=== PATIENT | male | born 1975 | race Caucasian/White ===

== ENCOUNTER 2017-05-08 22:08 | Emergency (ER) | payer OTHER ==
[~2017-05-08] VITALS: Ht 177.8 cm; Wt 90.7 kg
[2017-05-08 22:11] VITALS: TEMP 36.5; Ht 177.8 cm; Wt 90.7 kg
[2017-05-08] MEDS ORDERED: RANITIDINE HCL 50 MG/100 ML D5W IV STA (22:31)
[2017-05-08] MEDS ORDERED: SODIUM CHLORIDE 0.9% 1000ML 1,000 ML IV STA (22:31)
[2017-05-08] MEDS ORDERED: GI COCKTAIL PO STA (22:31)
[2017-05-08] MEDS ORDERED: SUCR1TAB PO (22:34)
[2017-05-08] MEDS ORDERED: ALUMINUM/MAGNESIUM SUSP 30 ML UDC ONE (22:54)
[2017-05-08] MEDS ORDERED: LIDOCAINE HCL 2% VISC SOLN 20 ML UDC ONE (22:54)
[2017-05-08 23:12] LABS: ALT/SGPT 20 U/L (12-78); BLOOD UREA NITROGEN 9 mg/dl (7-18); BUN/CREATININE RATIO 7.3 (10-20); CALCIUM 8.5 mg/dl (8.5-10.1); CARBON DIOXIDE 30 mmol/L (21-32); CHLORIDE 103 mmol/L (98-107); GLUCOSE 116 mg/dl (70-99); POTASSIUM 3.2 mmol/L (3.5-5.1); SODIUM 140 mmol/L (136-145)
[2017-05-08 23:17] LABS: ALKALINE PHOSPHATASE 68 U/L (45-117); AST/SGOT 11 U/L (15-37)
[2017-05-08 23:18] LABS: BASO % 0.5 %; BASO ABS # 0.03 K/uL (0-0.2); COMPLETE YES; HEMATOCRIT 44.1 % (42-52); IG% 0.2 %; LYMPH ABS # 2.22 K/uL (1.2-3.4); MEAN CELL VOLUME 89.5 fL (80-100); MEAN CORPUSCULAR HGB CONC 34.7 g/dl (32-36); MEAN PLATELET VOLUME 10.3 fL (7.4-10.4); MONO % 7.1 %; NEUT % 56.2 %; PLATELET COUNT 211 K/uL (130-400); PLT ESTIMATE NORMAL; RED BLOOD COUNT 4.93 M/uL (4.7-6.1); WHITE BLOOD COUNT 6.52 K/uL (4.8-10.8)
[2017-05-09] MEDS ORDERED: OMEP40CA41 PO (01:08)
--- NOTE | 2017-05-09 01:08 | EMERGENCY ROOM VISIT NOTE ---
History First contact with patient: 22:15 Chief Complaint: ABDOMINAL PAIN Stated Complaint: SEVERE ABD PAIN Nursing Triage Summary: Pt reports abdominal pain that started over a week ago. Pt reports nausea and vomiting. History of Present Illness The patient is a 41 year old male who presents to the Emergency Room with complaints of upper abdominal pain which started 8 days ago. The patient states he has a history of upper abdominal pain and has previously been seen his primary care provider regarding this. He states he had a CT scan and was scheduled for an EGD, but this was canceled. Symptoms have been intermittent over the past several months, but have worsened over the past 8 days. The patient has nausea and dry heaves. Symptoms worsen with eating. He states he has been taking Pepto-Bismol for symptoms. He does not take anything daily. Rates his discomfort an 8/10. Denies any changes in bowel movements or urinary symptoms. He denies any fevers. The patient states he has occasional chest pain. He denies shortness of breath. Review of Systems A complete 10 point review of systems was reviewed with the patient with pertinent positives and negatives as per history of present illness. All else were negative. Social History Smoking Status: Current Every Day Smoker Current/Historical Medications Scheduled Omeprazole (Prilosec), 40 MG PO DAILY Sucralfate (Sucralfate), 1 GM PO QID Allergies Coded Allergies: No Known Allergies (Unverified , 05/08/17) Physical Exam Vital Signs Date Time Temp Pulse Resp B/P (MAP) Pulse Ox O2 Delivery O2 Flow Rate FiO2 05/09/17 01:13 82 18 159/87 98 05/09/17 00:15 54 18 157/81 97 Room Air 05/08/17 22:11 36.5 66 16 129/79 98 Room Air Physical Exam VITALS: Vitals are noted on the nurse's note and reviewed by myself. Vital signs stable. GENERAL: This is a 41-year-old male, in no acute distress, nondiaphoretic, well- developed well-nourished. SKIN: Capillary reflex less than 2 seconds. HEENT: Normocephalic. PERRLA. EOMI. Mucous membranes moist. Neck is supple without nuchal rigidity. HEART: Regular rate and rhythm without murmurs gallops or rubs. LUNGS: Clear to auscultation bilaterally without wheezes, rales or rhonchi. ABDOMEN: Positive bowel sounds x 4. Soft, nondistended. Mild tenderness to palpation of the epigastric region. No guarding or rebound tenderness. NEURO: Patient was alert and oriented to person place and time. Medical Decision & Procedures ER Provider Diagnostic Interpretation: CHEST/ABDOMEN X-RAY: No free air. No bowel obstruction. No cardiopulmonary abnormality. Laboratory Results 05/08/17 22:40 Red Blood Count 4.93, Mean Corpuscular Volume 89.5, Mean Corpuscular Hemoglobin 31.0, Mean Corpuscular Hemoglobin Concent 34.7, Mean Platelet Volume 10.3, Neutrophils (%) (Auto) 56.2, Lymphocytes (%) (Auto) 34.0, Monocytes (%) (Auto) 7.1, Eosinophils (%) (Auto) 2.0, Basophils (%) (Auto) 0.5, Neutrophils # (Auto) 3.67, Lymphocytes # (Auto) 2.22, Monocytes # (Auto) 0.46, Eosinophils # (Auto) 0.13, Basophils # (Auto) 0.03 05/08/17 22:40 Test 05/08/17 22:40 White Blood Count 6.52 K/uL (4.8-10.8) Red Blood Count 4.93 M/uL (4.7-6.1) Hemoglobin 15.3 g/dL (14.0-18.0) Hematocrit 44.1 % (42-52) Mean Corpuscular Volume 89.5 fL (80-100) Mean Corpuscular Hemoglobin 31.0 pg (25-34) Mean Corpuscular Hemoglobin Concent 34.7 g/dl (32-36) Platelet Count 211 K/uL (130-400) Mean Platelet Volume 10.3 fL (7.4-10.4) Neutrophils (%) (Auto) 56.2 % Lymphocytes (%) (Auto) 34.0 % Monocytes (%) (Auto) 7.1 % Eosinophils (%) (Auto) 2.0 % Basophils (%) (Auto) 0.5 % Neutrophils # (Auto) 3.67 K/uL (1.4-6.5) Lymphocytes # (Auto) 2.22 K/uL (1.2-3.4) Monocytes # (Auto) 0.46 K/uL (0.11-0.59) Eosinophils # (Auto) 0.13 K/uL (0-0.5) Basophils # (Auto) 0.03 K/uL (0-0.2) RDW Standard Deviation 41.6 fL (36.4-46.3) RDW Coefficient of Variation 12.8 % (11.5-14.5) Immature Granulocyte % (Auto) 0.2 % Immature Granulocyte # (Auto) 0.01 K/uL (0.00-0.02) Platelet Estimate NORMAL Red Blood Cell Morphology Unremarkable Anion Gap 7.0 mmol/L (3-11) Est Creatinine Clear Calc Drug Dose 89.9 ml/min Estimated GFR () 85.3 Estimated GFR (Non- 73.6 BUN/Creatinine Ratio 7.3 (10-20) Calcium Level 8.5 mg/dl (8.5-10.1) Total Bilirubin 0.5 mg/dl (0.2-1) Direct Bilirubin < 0.1 mg/dl (0-0.2) Aspartate Amino Transf (AST/SGOT) 11 U/L (15-37) Alanine Aminotransferase (ALT/SGPT) 20 U/L (12-78) Alkaline Phosphatase 68 U/L (45-117) Troponin I < 0.015 ng/ml (0-0.045) Total Protein 5.9 gm/dl (6.4-8.2) Albumin 3.2 gm/dl (3.4-5.0) Lipase 137 U/L (73-393) Medications Administered Medications (Trade) Dose Ordered Sig/Naif Route Start Time Stop Time Status Last Admin Dose Admin Miscellaneous Medication (Gi Cocktail) 24 ml NOW STAT PO 05/08/17 22:31 05/08/17 22:33 DC 05/08/17 23:31 24 ML Sodium Chloride 1,000 ml @ 999 mls/hr Q1H1M STAT IV 05/08/17 22:31 05/08/17 23:31 DC 05/08/17 23:30 999 MLS/HR Ranitidine HCl (zANTac IV) 50 mg NOW STAT IV 05/08/17 22:31 05/08/17 22:33 DC 05/08/17 23:30 50 MG ECG Rate (beats per minute): 52 Rhythm: sinus bradycardia Findings: no acute ischemic change, no ectopy ED Course The patient was evaluated as above. Labs were drawn and IV access was obtained. Patient was medicated with IV Zantac and a GI cocktail. Patient was reevaluated and findings were discussed. Discharge instructions were reviewed with the patient. The patient verbalized understanding of my assessment and treatment plan and was discharged home in good condition. Medical Decision Differential diagnosis includes gastritis, peptic ulcer disease, biliary colic, pneumonia, bowel obstruction, colitis, gastroenteritis, among others. The patient is a 41-year-old male who presents today complaining of upper abdominal pain which has been intermittent over the past several months. Labs revealed no leukocytosis, anemia or concerning electrolyte abnormalities. Lipase was not elevated. Urinalysis was not suggestive of infection. EKG was interpreted by myself and shows a normal sinus rhythm without ischemic changes. Symptoms are most consistent with peptic ulcer disease or gastritis. He was instructed to start a PPI at home. He will follow-up with his primary care provider and will need EGD as an outpatient. He was instructed to return here for any worsening or new/concerning symptoms. The patient's case was reviewed with Dr. Lozano, ED attending physician, who agreed with my assessment and treatment plan. Based on the patient's presentation and work up, I feel the patient is stable for outpatient treatment. The patient was educated to return to the emergency department for any worsening of their current condition or new/concerning symptoms. He will follow up with his PCP. Medication reconciliation: I attest that I have personally reviewed the patient 's current medication list. Blood Pressure Screening: Patient was found to have a slightly elevated blood pressure due to circumstances. I do not believe that the patient requires hypertension monitoring. Impression Primary Impression: Epigastric abdominal pain Departure Information Dispostion Home / Self-Care Condition GOOD Prescriptions Omeprazole (PRILOSEC) 40 Mg Cap 40 MG PO DAILY for 14 Days, #14 CAP Prov: Lydia Walker ., G[place] 05/09/17 Referrals Rhona Ceron M.D. (PCP) Patient Instructions My [facility] Additional Instructions You have been treated in the Emergency Department your Abdominal Pain. Laboratory results and imaging studies have ruled out any emergent causes for your abdominal pain which would warrant admission or surgery. Omeprazole as prescribed. For pain control, you can use the following [id number] medicines (if >12 yo): - Regular strength (325mg/tab) Tylenol (acetaminophen) 2 tabs every 4-6 hours as needed. Do not exceed 12 tablets in a 24 hour period. Avoid taking more than 4 grams (4000 mg) of Tylenol per day. This includes any other sources of acetaminophen you may take on a regular basis. Drink plenty of water and stay well hydrated. As with any trip to the Emergency Department, you should follow-up with your Primary Care Provider from today's visit. Return to the emergency department if your symptoms persist despite treatment plan outlined above or if the following symptoms occur: fever, increased vomiting, or any other new/concerning symptoms.
[2017-05-09 01:13] VITALS: BP 159/87; PULSE 82; O2SAT 98
--- NOTE | 2017-05-09 06:24 | DIAGNOSTIC IMAGING REPORT ---
ABDOMEN 2VIEW W/PA CHEST RTN CLINICAL HISTORY: upper abdominal pain pain COMPARISON STUDY: No previous studies for comparison. FINDINGS: The soft tissues, psoas shadows, renal outlines and intestinal gas pattern appear normal. There is no evidence for bowel obstruction. There is no evidence for free intraperitoneal air. No abnormal abdominal calcifications are seen. A frontal view of the chest was performed and is unremarkable. Prior lumbar laminectomy IMPRESSION: No acute process. Electronically signed by: Sesar Young M.D. 05/09/2017 6:23 AM Dictated Date/Time: 05/09/2017 6:22 AM
== END 2017-05-09 01:17 | disposition home or self-care (01) ==
LOC: C.EDB 22:09 → C.EDA 05-09 01:17
DX: R10.13 Epigastric pain (principal); F17.210 Nicotine dependence, cigarettes, uncomplicated; Z79.899 Other long term (current) drug therapy